=== PATIENT | male | born 1990 ===

== ENCOUNTER 2023-12-15 10:13 | Emergency (ER) | payer OTHER, SELFPAY ==
[2023-12-15 10:29] VITALS: BP 134/71; PULSE 72; RESP 18; TEMP 36.3; O2SAT 99; BMI 28.6
== END 2023-12-15 14:34 | disposition left against medical advice (07) ==
LOC: HO.ED 14:24
PROVIDERS: Emergency Provider Emergency Medicine
DX: M54.50 Low back pain, unspecified (principal); M25.552 Pain in left hip; M25.551 Pain in right hip
CPT/HCPCS: 99281

== ENCOUNTER 2024-03-27 13:09 | Outpatient (REF) | payer MEDICAID, SELFPAY ==
--- OUTSIDE RECORDS SUMMARY | 2024-03-27 13:26 | XMS_ITS | Clinical Summary ---
Author Organization [employer] Address [address] [place] [address] 7 [place] [address] Care Team Providers Care Aws Developer Name Role Phone NamePetr MD Primary Care Provider [phone] Allergies No known active allergies Active Problems Problem Noted Date Diagnosed Date Well adult health check 03/26/2024 Depression 03/26/2024 Chronic midline low back pain 03/26/2024 Encounters Date Type Department Care Team Description 03/26/2024 2:00 PM EST Office Visit [address] [address] Petr Villanueva MD Well adult health check (Primary Dx); Depression, unspecified depression type; Chronic midline low back pain, unspecified whether sciatica present 03/15/2024 Patient Outreach [address] [address] Petr Villanueva MD Care Coordination (CHW outreach for SDOH housing search-referral completed ) 03/15/2024 Patient Outreach [address] [address] Petr Villanueva MD Pre-visit Planning (SDOH screening positive and Tobacco screening negative) 01/26/[address] [address] Boris Marsh MD New patient appt. 01/05/[address] [address] Boris Marsh MD New patient appt. from Last 3 Months Family History Medical History Relation Name Comments Liver cancer Father Heart attack Father's Brother Cancer Maternal Grandmother Diabetes Mother Hyperlipidemia Mother Hypertension Mother No Known Problems Mother's Brother No Known Problems Mother's Sister Drug abuse Other Breast cancer Paternal Grandmother Diabetes Paternal Grandmother Relation Name Status Comments Father Father's Brother Maternal Grandmother Mother Mother's Brother Mother's Sister Other Paternal Grandmother Social History Tobacco Use Types Packs/Day Years Used Date Smoking Tobacco: Never Smokeless Tobacco: Never Tobacco Cessation:Counseling Given: Not Answered Depression Answer Date Recorded Patient Health Questionnaire-9 Score 9 03/26/2024 Patient Health Questionnaire-9 Score 9 03/26/2024 Last PHQ-9: Questionnaire Data Not on file 0 03/26/2024 Housing Stability Answer Date Recorded What is your housing situation today? I do not have housing (Staying with others, in a hotel, in a snf, living outside on the street, on a beach, in a car, or in a park 03/15/[address] you li ve. Do you have problems with any of the following? None of the above 03/15/2024 Food Insecurity Answer Date Recorded Within the past 12 months, y ou worried that your food would run out before you got money to buy more: Never True 03/15/2024 Within the past 12 months,th e food you bought just didn't last and you didn't have enough money to get more: Never True Transportation Answer Date Recorded In the past 12 months, has l ack of transportation kept you from medical appts, meetings, work or from getting things needed for daily living? No 03/15/2024 Utilities Answer Date Recorded In the past 12 months, has t he electric, gas, oil or water company threatened to shut off services in your home? No 03/15/2024 Depression Answer Date Recorded Patient Health Questionnaire-2 Score 4 03/26/2024 Internet Access Answer Date Recorded Internet Access Q1 Yes 03/15/2024 Internet Access Q2 Not on file 03/15/2024 Sex and Gender Information Value Date Recorded Sex Assigned at Male 03/22/2024 3:19 PM EST Legal Sex Male 11:42 AM EST Gender Identity Male 03/22/2024 3:19 PM EST Sexual Orientation Straight 03/26/2024 2: 11 PM EST Last Filed Vital Signs Vital Sign Reading Time Taken Comments Blood Pressure 133/88 03/26/2024 2:21 PM EST Pulse 76 03/26/2024 2:21 PM EST Temperature 36.1 ??C (96.9 ??F) 03/26/2024 2:21 PM ES T Respiratory Rate 18 03/26/2024 2:21 PM EST Oxygen Saturation 97% 03/26/2024 2:21 PM EST Inhaled Oxygen Concentration - - Weight 90.7 kg (200 lb) 03/26/2024 2:21 PM EST Height 172.7 cm (5' 8 ) 03/26/2024 2:21 PM EST Body Mass Index 30.41 03/26/2024 2:21 PM EST Plan of Treatment Health Maintenance Due Date Last Done Comments HIV Screening 1992 Family Planning (PISQ) 2007 Hepatitis C Screening 2010 Hepatitis B Vaccines (1 of 3 - 19+ 3-dose series) 2011 Pneumococcal Vaccine: Pediatrics (0 to 5 Years) and At-Risk Patients (6 to 49) Years) (1 of 2 - PCV) 2011 COVID-19 Vaccine ( - 2023-2 5 season) 2023 Influenza Vaccine (#1) 2023 Depression Monitoring (PHQ-9) 09/23/2024, 03/26/2024 SDOH Screening 03/15/2025 03/15/2024 Alcohol/Substance Use Screening 03/26/2025 03/26/2024 Depression Screening 03/26/2025 03/26/2024, 03/26/2024 Tobacco Screening 03/26/2025 03/26/2024 DTaP/Tdap/Td Vaccines (2 - T d or Tdap) 01/05/2032 01/04/2022 Zoster Vaccines (1 of 2) 2042 RSV Patients and Patients Aged 60 years or older (1 - 1-dose 75+ series) 2067 HIB Vaccines Aged Out No longer eligi ble based on patient's age to complete this topic HPV Vaccines Aged Out No longer eligi ble based on patient's age to complete this topic Hepatitis A Vaccines Aged Out No long er eligible based on patient's age to complete this topic IPV Vaccines Aged Out No longer eligi ble based on patient's age to complete this topic Meningococcal Vaccine Aged Out No luis rakesh eligible based on patient's age to complete this topic RSV under 20 months Aged Out No longe r eligible based on patient's age to complete this topic Rotavirus Vaccines Aged Out No longer eligible based on patient's age to complete this topic Insurance [employer] Care Teams Aws Developer Relationship Specialty Start Date End Date Name, MD Petr [address] [place] [address] PCP - General Internal Medicine 03/26/24
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
--- OUTSIDE RECORDS SUMMARY | 2024-03-27 13:26 | XMS_ITS | Encounter Summary ---
Author Organization [employer] Address [address] [facility] [address] [place] [address] Care Team Providers Care Lace Mender Name Role Phone Unavailable Primary Care Provider Unavailabl e Reason for Visit * Reason Comments Care Coordination CHW outreach for SDO H housing search-referral completed Encounter Details Date Type Department Care Team (Latest Contact Info) Description 03/15/2024 Patient Outreach [facility] [address] [place] [address] Name, MD Petr [address] [place] [address] Care Coordination (CHW outreach for SDOH housing search-referral completed ) Social History Tobacco Use Types Packs/Day Years Used Date Smoking Tobacco: Never Assessed Housing Stability Answer Date Recorded What is your housing situation today? I do not have housing (Staying with others, in a hotel, in a half-way, living outside on the street, on a [...] off services in your home? No 03/15/2024 Internet Access Answer Date Recorded Internet Access Q1 Yes 03/15/2024 Internet Access Q2 Not on file 03/15/2024 Sex and Gender Information Value Date Recorded Sex Assigned at Male 03/22/2024 3:19 PM EST Legal Sex Male 11:42 AM EST Gender Identity Male 03/22/2024 3:19 PM EST Sexual Orientation Straight 03/26/2024 2: 11 PM EST documented as of this encounter Progress Notes * Noel Sheehan - 03/15/2024 2:05 PM EST CHW Noel Sheehan, placed outbound call to patient for assistance with SDOH as a referral was received by the provider. Patient's name and were confirmed. Patient screened positive for the following SDOH housing insecurities. CHW referred patient to list of housing and applications mail out to address on file. Patient verbalizes understanding, and able to agree to follow up with housing search and call. Patient educated on extended clinic hours on Mondays through Wednesdays, and Walk-In Urgent Care Located in [facility] of [facility]. Patient provided with after-hours line for [facility], , which offer night time triage service and option to transfer to automation control technician provider if needed. documented in this encounter Plan of Treatment Not on file documented as of this encounter Visit Diagnoses Not on filedocumented in this encounter
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
[2024-03-27 16:29] LABS: Hematocrit 44.7 % (42.0-52.0); Hemoglobin 14.3 g/dl (14.0-18.0); Mean Corpuscular Hemoglobin 27.7 pg (27.0-33.0); Mean Corpuscular Volume 86.5 fL (80.0-98.0); Mean Platelet Volume 10.8 fL (9.4-12.4); Platelet Count 297 X10*3/uL (160-400); Red Blood Count 5.17 X10*6/uL (4.60-5.80); Red Cell Distribution Width 14.4 % (11.0-16.0); White Blood Count 11.9 X10*3/uL (4.8-10.8)
[2024-03-27 16:48] LABS: Anion Gap 16 (12-20); Blood Urea Nitrogen 17 mg/dL (9-16); Calcium 9.5 mg/dL (8.4-10.2); Carbon Dioxide 29 mmol/L (22-29); Chloride 104 mmol/L (96-108); Cholesterol 141 mg/dL (<200); Estimated Glomerular Filt Rate > 60; Glucose Random 87 mg/dL (60-115); HDL Cholesterol 55 mg/dL (>40); LDL Cholesterol Calculated 65 mg/dL (<100); Potassium 4.5 mmol/L (3.3-5.1); Sodium 144 mmol/L (135-145); Triglycerides 105 mg/dL (<150)
[2024-03-27 16:52] LABS: Estimated Average Glucose 103 mg/dL; Hemoglobin A1C 127.2331 umol/L; Hemoglobin A1c % 5.2 % (<6.0); Total Hemoglobin (HGBA1C) 3812.7642 umol/L
[2024-03-28 01:48] LABS: CT PCR NOT DETECTED (Not Detect.); NG PCR NOT DETECTED (Not Detect.)
[2024-03-28 08:38] LABS: HBc Num1 0.14 S/CO (0.00-0.79); HBsAGNum1 0.31 S/CO (0.00-0.99); HIV AB/AG Nonreactive (Nonreactive); HIV Num 1 0.06 S/CO (0.00-0.99); Hepatitis B Core Antibody Nonreactive (Nonreactive); Hepatitis B Surface Antigen Negative (Negative); ~HepC Num1 0.15 S/CO (0.00-0.79); ~Hepatitis C Antibody Nonreactive (Nonreactive)
== END 2024-03-27 13:10 | disposition home or self-care (01) ==
LOC: HO.HHCL 13:09
PROVIDERS: Visit Provider Nurse Practitioner Family
DX: Z00.00 Encounter for general adult medical examination without abnormal findings (principal)
CPT/HCPCS: 80048; 80061; 83036; 85027; 86704; 86803; 87340; 87389; 87491; 87591